=== PATIENT | male | born 1930 | race Caucasian/White ===

== ENCOUNTER 2019-07-02 13:57 | Emergency (ER) | payer MEDICARE, OTHER ==
--- NOTE | 2019-07-02 14:03 | ED.PDOC ---
History of Present Illness - General Time Seen by Provider: 07/02/19 14:02 Source: patient, family - History of Present Illness Initial Comments: 88 yo male with PMH of HTN, CHF, a-fib, pulmonary HTN who is bib from home for cc of elevated BP. 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 reports BP was well- controlled this morning but increased this afternoon - 170s/100s then to 192/107 just DELINQUENT ACCOUNT CLERK so she called his HH nurse who advised to bring him into the ED. He took his 2 home BP meds this morning. Denies any chest pain, dyspnea, abd pain, n/v/d, cough, fevers. Did have some leg swelling last night so his gave him an extra Lasix tablet and today it is better. reports he has just felt generally a little weaker than usual with poor appetite this morning but no other acute sx's reported. High Pressure Kettle Operator is Dr. Sofia, PCP is Dr. Paige. Also sees a paper guillotine operator. Allergies/Adverse Reactions: Allergies Tetracyclines & Related Allergy (Verified 07/02/19 14:40) Home Medications: Ambulatory Orders Ondansetron Odt [Zofran ODT] 8 mg PO Q8H PRN 5 Days #10 tab 07/02/19 Oseltamivir Capsule [Tamiflu] 75 mg PO BID 5 Days #10 capsule 07/02/19 Review of Systems - Review of Systems Review of Systems: 07/02/19 14:21 as per HPI All other Systems: Reviewed and Negative Family Medical History - Family History Mother Family History: No Known Living Status: Physical Exam - Physical Exam General Appearance: Alert, Comfortable, No apparent distress Eye Exam: right normal, bilateral other - missing left eye Ears, Nose, Throat: normal ENT inspection, normal pharynx, hearing decreased Neck: non-tender, full range of motion, supple, normal inspection Respiratory: lungs clear, normal breath sounds, no respiratory distress, no accessory muscle use Cardiovascular/Chest: normal peripheral pulses, regular rate, rhythm, no edema Peripheral Pulses: radial,right: 2+, radial,left: 2+ Gastrointestinal/Abdominal: non tender, soft, no organomegaly Back Exam: normal inspection, no CVA tenderness, no vertebral tenderness Extremity: normal range of motion, non-tender, normal inspection, no pedal edema, no calf tenderness Neurologic: commercial painter II-XII nml as tested, no motor/sensory deficits, alert, normal mood/affect, oriented x 3 Skin Exam: normal color, warm/dry Progress - Progress Progress: 07/02/19 14:22 Elevated BP -consider 2/2 acute illness, ACS, CHF, a-fib, hypertensive urgency, electrolyte derangement, stress/anxiety/pain, other -obtain cardiac work-up, labs -place PIV -initial BP 170s/90s in ED, noted a-fib rhythm, rate-controlled 07/02/19 16:52 -Pt remains stable, BP has improved to 130s/90s with rest alone. Remains in a- fib but rate controlled, HR 80s-90s mostly. -He is positive for Flu A. Trop 0.03 x2 in ED, repeat EKG unchanged. CXR & CT chest obtained which reveals BL small pleural effusions, which states are chronic. No acute infiltrate/PNA per my read. Labwork reveals moderately elevated BNP, mild anemia, CKD - which also all appear chronic. Pt sees Dr. Barrett (nephrology) for CKD. -discussed all findings and dx of Flu. Will give Tamiflu Rx. Dc home in fair condition, return warnings discussed at length. Lukasz Ball MD Billing #[id number] 07/02/19 14:09 Sodium Chloride 0.9% (Flush) [Saline Flush Syringe] 10 ml IV PRN PRN 07/02/19 14:15 EKG STAT 07/02/19 16:00 EKG STAT 07/03/19 09:00 Pulse Ox Daily Laboratory Results - last 24 hr 07/02/19 07/02/19 07/02/19 14:38 14:38 14:38 WBC 4.9 RBC 4.15 L Hgb 12.9 L Hct 39.4 L MCV 95.0 H MCH 31.2 H MCHC 32.8 L RDW 14.3 Plt Count 194 MPV 8.2 Absolute Neuts (auto) 3.70 Absolute Lymphs (auto) 0.40 L Absolute Monos (auto) 0.70 Absolute Eos (auto) 0.00 Absolute Basos (auto) 0.00 Neutrophils % 76.4 Lymphocytes % 7.6 L Monocytes % 14.7 H Eosinophils % 0.7 L Basophils % 0.6 Sodium 139 Potassium 4.5 Chloride 100 L Carbon Dioxide 29 Anion Gap 14.5 BUN 32 H Creatinine 2.34 H BUN/Creatinine Ratio 13.7 Random Glucose 105 Serum Osmolality 284.8 Calcium 9.5 Troponin I 0.03 B-Natriuretic Peptide 879.0 H* 07/02/19 16:05 WBC RBC Hgb Hct MCV MCH MCHC RDW Plt Count MPV Absolute Neuts (auto) Absolute Lymphs (auto) Absolute Monos (auto) Absolute Eos (auto) Absolute Basos (auto) Neutrophils % Lymphocytes % Monocytes % Eosinophils % Basophils % Sodium Potassium Chloride Carbon Dioxide Anion Gap BUN Creatinine BUN/Creatinine Ratio Random Glucose Serum Osmolality Calcium Troponin I 0.03 B-Natriuretic Peptide - EKG/XRAY/CT EKG: Atrial, Fibrillation - with incomplete Left BBB, HR 95, no ST elevations or q waves, nonspecific T wave inversions in anteroseptal leads, axis and intervals wnl, no prior EKG for comparison Departure - Departure Clinical Impression: Influenza A Time of Disposition: 16:49 Disposition: Discharge to Home or Self Care Condition: Fair Instructions: Flu, Adult (DC) Diet: resume usual diet Activity: increase activity as tolerated Referrals: ABRAM BROWNLEE MD [Primary Care Provider] - 1 Week Prescriptions: Ondansetron Odt [Zofran ODT] 8 mg PO Q8H PRN 5 Days #10 tab PRN Reason: Nausea Oseltamivir Capsule [Tamiflu] 75 mg PO BID 5 Days #10 capsule Home Medications: Ambulatory Orders Ondansetron Odt [Zofran ODT] 8 mg PO Q8H PRN 5 Days #10 tab 07/02/19 Oseltamivir Capsule [Tamiflu] 75 mg PO BID 5 Days #10 capsule 07/02/19 Additional Instructions: Remain well-hydrated and gradually advance diet and activity level as tolerated. Return to the ED if patient's symptoms worsen or if he develops concerning symptoms such as chest pain, shortness of breath, abdominal pain, frequent vomiting or diarrhea, poor fluid intake, lethargy, etc... Follow up with the patient's PCP in 5-7 days is recommended.
--- NOTE | 2019-07-02 14:24 | RAD ---
EXAM: Chest,1 View CLINICAL INDICATION: Hypertension COMPARISON: There is no previous study for comparison. FINDINGS: A single view of the chest was obtained. The heart size is mildly enlarged. The pulmonary vascularity is unremarkable. There are small bilateral pleural effusions with mild bibasilar atelectasis. There is no pneumothorax. IMPRESSION: Small bilateral pleural effusions with mild bibasilar atelectasis. Electronically signed by: Yogi Cameron MD 07/02/2019 2:23 PM ADJUNCT COMMUNICATIONS FACULTY MEMBER
[2019-07-02] MEDS: SODIUM CHLORIDE 0.9% (FLUSH) 10 ML SYG IV PRN (14:41)
--- NOTE | 2019-07-02 16:07 | CT ---
EXAM: CT Chest Without Intravenous Contrast CLINICAL HISTORY: elevated blood pressure, abnormal chest x-ray TECHNIQUE: Axial computed tomography images of the chest without intravenous contrast. Sagittal and coronal reformatted images were created and reviewed. This CT exam was performed using one or more of the following dose reduction techniques: automated exposure control, adjustment of the mA and/or kV according to patient size, and/or use of iterative reconstruction technique. COMPARISON: No relevant prior studies available. FINDINGS: Limitations: Motion artifact limits assessment. Lungs: There is consolidation in both lower lobes. Pleural space: Small layering bilateral pleural effusions present. No pneumothorax. Heart: Cardiomegaly. No significant pericardial effusion. Bones/joints: Degenerative present in the spine. No gross fractures of the motion artifact limits assessment. No dislocation. Soft tissues: Unremarkable. Vasculature: Atherosclerosis of the aorta and branches. No aneurysm. Lymph nodes: No enlarged lymph nodes. Kidneys and ureters: Possible left kidney stones although motion artifact limits assessment. IMPRESSION: Limited due to motion artifact. Small bilateral pleural effusions and dependent bilateral lower lobe atelectasis or pneumonia present. Electronically signed by: Modesta Celeste MD 07/02/2019 4:06 PM NURSING SERVICES MANAGER
[2019-07-02] MEDS: OSELTAMIVIR 75 MG CAP PO ONE (16:59)
[2019-07-02 17:07] VITALS: BP 167/91; TEMP 100.2; O2SAT 96
== END 2019-07-02 17:16 | disposition home or self-care (01) ==
LOC: ER 13:57
DX: J10.1 Influenza due to other identified influenza virus with other respiratory manifestations (principal); I10 Essential (primary) hypertension; I48.91 Unspecified atrial fibrillation; I44.7 Left bundle-branch block, unspecified; I50.9 Heart failure, unspecified; Z88.3 Allergy status to other anti-infective agents